=== PATIENT | female | born 1970 | race Caucasian/White ===

== ENCOUNTER → 2018-02-14 | Outpatient (CLI) | payer OTHER ==
[~2018-02-14] MED LIST: BUPR75 PO; CYCL10 PO; DULO60 PO; ESTR1 PO; ESTR2 PO; Flomax0.4 MG PO; HYDACE5 PO; HYDCHL25 PO; IBUP800 PO; LAMO100 PO; METH5 PO; NORT25 PO; Norco 5-325 Ta1 EACH PO; OXCA150 PO; OXYACE5T PO; PROM25 PO; QUET200 PO; RXOXYACE PO; SPIHYD PO
[2018-02-14 17:16] LABS: Source, Urine Clean Catch
[2018-02-14 18:04] LABS: Bilirubin, Urine Neg (Neg); Blood, Urine Neg (Neg); Glucose Qualitative, Urine Neg (Neg); Ketones, Urine Neg (Neg); Leukocyte Esterase, Urine 1+ (Neg); Nitrite, Urine Neg (Neg); Protein, Urine 1+ (Neg); Specific Gravity, Urine 1.005 (1.003-1.022); Urobilinogen, Urine NORM (Normal)
[2018-02-14 18:19] LABS: Appearance, Urine Clear (Clear); Color, Urine Yellow (P-Yellow)
[2018-02-14 18:20] LABS: Hyaline Casts 0-2 /lpf (0-2)
[2018-02-14 18:22] LABS: Bacteria Few /hpf; Red Blood Cells, Urine 0-2 /hpf (0-2); Squamous Epithelial Cells Few /hpf (Few)
== END ==
LOC: LAB 14:33 → LAB SHORT 14:33
PROVIDERS: Obstetrics & Gynecology
DX: N32.9 Bladder disorder, unspecified (principal); N39.46 Mixed incontinence; R82.90 Unspecified abnormal findings in urine
CPT/HCPCS: 81001; 87086